=== PATIENT | female | born 1995 | race Caucasian/White ===

== ENCOUNTER 2018-09-15 04:03 | Inpatient (IN) ==
[2018-09-15] MEDS ORDERED: LORazepam 2 MG/4 ML VIAL ONE (04:32)
[2018-09-15 06:04] LABS: Alanine Aminotransferase 29 U/L (12-78); Albumin Level 4.4 gm/dl (3.4-5.0); Alkaline Phosphatase 64 U/L (45-117); Aspartate Aminotransferase 29 U/L (15-37); BUN Creatinine Ratio 11.4 (10-20); Bilirubin,Total 0.5 mg/dl (0.2-1); Blood Urea Nitrogen 10 mg/dl (7-18); Calcium 8.9 mg/dl (8.5-10.1); Carbon Dioxide 22 mmol/L (21-32); Chloride 106 mmol/L (98-107); Est GFR (African American) 116.8; Est GFR (Non-African American) 100.8; Globulin 4.5 gm/dl (2.5-4.0); Glucose 80 mg/dl (70-99); Potassium 3.5 mmol/L (3.5-5.1); Sodium 138 mmol/L (136-145); Total Protein 8.9 gm/dl (6.4-8.2)
[2018-09-15 06:05] LABS: Acetaminophen 37 ug/ml (10-30); Salicylate < 1.7 mg/dl (2.8-20)
[2018-09-15 06:06] LABS: Amphetamines+Metham, Urine Neg (Neg); Barbiturates, Urine Neg (Neg); Benzodiazepine, Urine Neg (Neg); Cocaine, Urine Neg (Neg); MDMA (Ecstacy), Urine Neg (Neg); Methadone, Urine Neg (Neg); Opiate, Urine Neg (Neg); Phencyclidine, Urine Neg (Neg)
[2018-09-15 06:16] LABS: Appearance Urine Clear (Clear); Bilirubin Urine Negative (Negative); Blood Urine Negative (Negative); Color Urine Yellow; Glucose Urine UA Negative (Negative); Ketones Urine Negative (Negative); Leukocyte Esterase Urine Negative (Negative); Nitrite Urine Negative (Negative); Protein Urine Negative (Negative); Specific Gravity Urine 1.009 (1.000-1.030); Urobilinogen Urine Negative (Negative); pH Urine 6.5 (4.5-7.5)
[2018-09-15 06:24] LABS: Hematocrit (blood only) 35.9 % (37-47); Hemoglobin 12.4 g/dL (12.0-16.0); Mean Corpuscular Hgb Conc 34.5 g/dL (32-36); Mean Corpuscular Volume 87.1 fL (80-100); RDW Standard Deviation 41.5 fL (36.4-46.3); Red Blood Count 4.12 M/uL (4.2-5.4); White Blood Count 7.48 K/uL (4.8-10.8)
[2018-09-15 06:25] LABS: Lymphocytes % (auto) 32.9 %; Mean Platelet Volume 10.3 fL (7.4-10.4); Neutrophils % (auto) 59.8 %; Platelet Count 232 K/uL (130-400)
[2018-09-15 06:26] LABS: Basophils # (auto) 0.03 K/uL (0-0.2); Basophils % (auto) 0.4 %; Cast Urine Automated 0 /lpf (0-5); Eosinophils # (auto) 0.06 K/uL (0-0.5); Eosinophils % (auto) 0.8 %; Immature Granulocytes # (auto) 0.01 K/uL (0.00-0.02); Immature Granulocytes % (auto) 0.1 %; Lymphocytes # (auto) 2.46 K/uL (1.2-3.4); Monocytes # (auto) 0.45 K/uL (0.11-0.59); Neutrophils # (auto) 4.47 K/uL (1.4-6.5); RBC Urine Automated 0-4 /hpf (0-4)
[2018-09-15 06:27] LABS: Bacteria Urine Automated 2+ (Negative)
--- NOTE | 2018-09-15 06:32 | Emergency Department Note ---
ED Provider Note Name: Capri Kessler Age: 22 F Arrives Via: EMS Informant: Pt (intoxicated), Friend, EMS CC: Medication overdose HPI: 22 female arrives for evaluation of medication overdose. Pt notes she was was drinking alcohol with friends and on returning home this evening her roomates were upset with her. She admits she took a handful of pills around 12am (Midnight). She admits she did this due to being upset, that she doesn't want to and that she is scared. States that it was an over the counter pain medication and is unsure if it was motrin or tylenol. She denies symptoms other than a headache currently. No trauma nor injuries. No other attempts at harming self. No past history of depression, nor suicide attempt. Has never seen a psychiatrist nor been evaluated for psychiatric illness. She takes control (nexplanon). She is on Humira. No family history per her of suicide nor depression. Denies cp, sob, abdominal pain, nausea, vomiting, back pain, nor other symptoms. No interventions prior to arrival. Nothing makes better nor worse. ROS: See above HPI for pertinent positives & negatives. A total of 10 systems reviewed and were otherwise negative. Past Medical History: Denies PMH Past Surgical History: Right Hip Surgery last year (unknown reason) Family History: Denies suicide in family nor other medical issues Social History: Student, drinks alcohol regularly, no drug use, no smoking, works a job Home Medications: Humira, Nexplanon Allergies None Physical: Vitals: 104/51, P 105, R 18, O2 96% Exam: GENERAL: Patient is upset appearing, crying, intoxicated and in minimal distress. EYES: No scleral icterus, unremarkable pupils. ENT: Mucous membranes moist, no nasal congestion. NECK: No masses appreciated, no meningismus, trachea is midline. RESPIRATORY: No dyspnea. Clear to auscultation and equal bilaterally. No wheeze, no rhonchi. CARDIOVASCULAR: Tachy. No murmurs, rubs, gallops appreciated. GASTROINTESTINAL: Abdomen soft, non-tender, no peritonitis. Bowel sounds positive. No masses appreciated. BACK: No midline tenderness, no CVA tenderness EXTREMITIES: Normal motion all extremities, no cyanosis, no edema. NEUROLOGIC: Intoxicated, no acute motor or sensory deficits, no focal weakness, cranial nerves grossly intact. SKIN: No rash, no jaundice, no diaphoresis. PSYCH: Admits being upset/anxious, admits sadness, denies she wants to nor hurt others. Denies hallucinations. ED Course: Prior Medical Record, Triage/Nursing Notes, Medications, Allergies reviewed by Me Vital Signs: reviewed and remarkable for Tachycardia Labs: Reviewed and remarkable for Tylenol level elevation initially below curve, but then significantly elevated at 4 hrs from arrival, otherwise clear work-up Interventions: Saline Lock, NSS Bolus 1 L IV, Ativan 1mg IV Imaging: CT Head : Per statrad no acute findings EKG: Per My interpretation: Sinus Tach 112 bpm, no ectopy, no ischemia, QTC 466 Consults: Poison Control: Verify medication she overdosed on, repeat Tyl not unreasonable. Rediscussion with them and they agree with starting nac and admission. Reassessments/Times: Multiple, stable, feeling better. Blood pressure: Normal. No Referral necessary Disposition: Admission to Hospitalist service (Dr Moseley) Differentials: Differential: Mood Disorder, Overdose, Infectious, Electrolyte Abnormality, Cardiac, Hepatic, Endocrine, Toxicologic, Neurologic, amongst other pathologies entertained. amongst other pathologies. Medical Decision Makin yr old female arrives intoxicated admitting medication overdose (not clear suicidal intent) around 12am after fighting with roomates. No history of s imilar. She denies any thoughts of hurting herself now. She wishes to go home though with alcohol level, tylenol mildly elevated, and 302 by police she will need to stay until medically cleared and then have full psych eval. She has moderately elevated Tyl level which need to be trended given intoxication and possibility of taking pills after 12am (but not before due to being with friends at that time). She arrived at 4am thus will repeat Tylenol at 8am to verify it is not increasing nor concern for need of NAC. With normal LFTs and tylenol below curve on initial seems reasonable to hold off on empiric nac for the moment. She was given some IV fluids as well as Ativan which improved her anxiety. She was stable on repeat evaluations. Repeat Tylenol level at 4 hours from arrival notes significant increase and is above line for 8hrs. I reviewed this with poison control and they agree at this time that she will need to be started on NAC. Discussed this with patient who is aware of plan for admission. Hospitalist consulted for admission. On several occasions I offered to contact parents and she declines. Impression: Acetaminophen Overdose Alcohol Intoxication Depression Anxiety Critical Care: I have personally spent greater than 30 minutes of critical care time in the direct management of this patient. Tylenol overdose requiring N-Acetylcysteine. This was a life/limb threatening event. This includes time spent evaluating patient, direct bedside care, chart review, placing orders, interpretation of diagnostic studies, discussion with consultants, patient, and friend, as well as other required patient management activities. This 30 minutes is in excess of all separately billable procedures. Jeffy Magana MD This patient was seen during [facility] down-time and chart completed at later date/time. Please note that times of orders, medications, and testing as well as re-evaluations and consultations may not accurately reflect actual times they were placed/preformed. Impression & Plan Acetaminophen overdose, Alcohol intoxication, Depression, Anxiety Results & Data Vital Signs Vital Signs - 24 hr 09/15/18 06:51 09/15/18 07:15 09/15/18 08:00 Pulse Rate [Apical] 113 H 87 95 H Pulse Rhythm [Apical] Regular Regular Respiratory Rate 25 H 25 H 24 Respiratory Effort / Characteristics Non-Labored Spontaneous Non-Labored Spontaneous Non-Labored Spontaneous Respiratory Depth Normal Normal Normal Respiratory Pattern Regular Regular Regular Blood Pressure [Right Arm] 99/48 L 102/46 L 106/57 L Blood Pressure Mean [Right Arm] 65 64 73 Blood Pressure Position [Right Arm] Sitting Lying Lying Pulse Oximetry 99 97 99 Oxygen Delivery Method Room Air Room Air Room Air 09/15/18 08:30 09/15/18 09:00 Pulse Rate [Apical] 105 H 111 H Pulse Rhythm [Apical] Regular Regular Respiratory Rate 18 21 Respiratory Effort / Characteristics Non-Labored Spontaneous Non-Labored Respiratory Depth Normal Normal Respiratory Pattern Regular Regular Blood Pressure [Right Arm] 104/51 L 115/68 Blood Pressure Mean [Right Arm] 68 83 Blood Pressure Position [Right Arm] Lying Lying Pulse Oximetry 97 98 Oxygen Delivery Method Room Air Room Air Laboratory Data Result diagrams: 09/15/18 04:15 09/15/18 04:15 Lab Results 09/15/18 09/15/18 09/15/18 Range/Units 04:15 04:15 04:15 WBC (4.8-10.8) K/uL RBC (4.2-5.4) M/uL Hgb (12.0-16.0) g/dL Hct (37-47) % MCV (80-100) fL MCH (25-34) pg MCHC (32-36) g/dL RDW Std Deviation (36.4-46.3) fL RDW Coeff of Mohan (11.5-14.5) % Plt Count (130-400) K/uL MPV (7.4-10.4) fL Immature Gran % (Auto) % Neut % (Auto) % Lymph % (Auto) % Vil[place] % (Auto) % Eos % (Auto) % Baso % (Auto) % Immature Gran # (Auto) (0.00-0.02) K/uL Neut # (Auto) (1.4-6.5) K/uL Lymph # (Auto) (1.2-3.4) K/uL Vil[place] # (Auto) (0.11-0.59) K/uL Eos # (Auto) (0-0.5) K/uL Baso # (Auto) (0-0.2) K/uL Absolute Nucleated RBC (0-0) K/uL Nucleated RBC % (auto) % PT (9.0-12.0) Seconds INR (0.9-1.1) APTT (21.0-31.0) Seconds PTT Ratio Sodium (136-145) mmol/L Potassium (3.5-5.1) mmol/L Chloride (98-107) mmol/L Carbon Dioxide (21-32) mmol/L Anion Gap (3-11) BUN (7-18) mg/dl Creatinine (0.6-1.2) mg/dl Est Cr Clr Drug Dosing Est GFR ( Amer) Est GFR (Non-Af Amer) BUN/Creatinine Ratio (10-20) Glucose (70-99) mg/dl Calcium (8.5-10.1) mg/dl Total Bilirubin (0.2-1) mg/dl AST (15-37) U/L ALT (12-78) U/L Alkaline Phosphatase (45-117) U/L Total Protein (6.4-8.2) gm/dl Albumin (3.4-5.0) gm/dl Globulin (2.5-4.0) gm/dl Albumin/Globulin Ratio (0.9-2) TSH (0.300-4.500) uIu/ml Urine Color Yellow Urine Appearance Clear (Clear) Urine pH 6.5 (4.5-7.5) Ur Specific [place] 1.009 (1.000-1.030) Urine Protein Negative (Negative) Urine Glucose (UA) Negative (Negative) Urine Ketones Negative (Negative) Urine Blood Negative (Negative) Urine Nitrite Negative (Negative) Urine Bilirubin Negative (Negative) Urine Urobilinogen Negative (Negative) Ur Leukocyte Esterase Negative (Negative) Urine WBC (Auto) 5-10 H (0-5) /hpf Urine RBC (Auto) 0-4 (0-4) /hpf U Hyaline Cast (Auto) 0 (0-5) /lpf U Epithel Cells (Auto) 5-10 H (0-5) /lpf Urine Bacteria (Auto) 2+ H (Negative) Urine Test Negative (Negative) Salicylates (2.8-20) mg/dl Urine Opiates Screen Neg (Neg) Ur Methadone, Qual Neg (Neg) Acetaminophen (10-30) ug/ml Urine Barbiturates Neg (Neg) Ur Phencyclidine (PCP) Neg (Neg) U Amphetamin/Meth Scrn Neg (Neg) MDMA (Ecstasy) Screen Neg (Neg) U Benzodiazepines Scrn Neg (Neg) Ur Cocaine Metabolite Neg (Neg) U Marijuana (THC) Screen Neg (Neg) Ethyl Alcohol mg/dL (0-3) mg/dl 09/15/18 09/15/18 09/15/18 Range/Units 04:15 04:15 04:15 WBC 7.48 (4.8-10.8) K/uL RBC 4.12 L (4.2-5.4) M/uL Hgb 12.4 (12.0-16.0) g/dL Hct 35.9 L (37-47) % MCV 87.1 (80-100) fL MCH 30.1 (25-34) pg MCHC 34.5 (32-36) g/dL RDW Std Deviation 41.5 (36.4-46.3) fL RDW Coeff of Mohan 13.0 (11.5-14.5) % Plt Count 232 (130-400) K/uL MPV 10.3 (7.4-10.4) fL Immature Gran % (Auto) 0.1 % Neut % (Auto) 59.8 % Lymph % (Auto) 32.9 % Vilas % (Auto) 6.0 % Eos % (Auto) 0.8 % Baso % (Auto) 0.4 % Immature Gran # (Auto) 0.01 (0.00-0.02) K/uL Neut # (Auto) 4.47 (1.4-6.5) K/uL Lymph # (Auto) 2.46 (1.2-3.4) K/uL Vilas # (Auto) 0.45 (0.11-0.59) K/uL Eos # (Auto) 0.06 (0-0.5) K/uL Baso # (Auto) 0.03 (0-0.2) K/uL Absolute Nucleated RBC 0.00 (0-0) K/uL Nucleated RBC % (auto) 0.0 % PT (9.0-12.0) Seconds INR (0.9-1.1) APTT (21.0-31.0) Seconds PTT Ratio Sodium 138 (136-145) mmol/L Potassium 3.5 (3.5-5.1) mmol/L Chloride 106 (98-107) mmol/L Carbon Dioxide 22 (21-32) mmol/L Anion Gap 10.0 (3-11) BUN 10 (7-18) mg/dl Creatinine 0.83 (0.6-1.2) mg/dl Est Cr Clr Drug Dosing Not Reportable Est GFR ( Amer) 116.8 Est GFR (Non-Af Amer) 100.8 BUN/Creatinine Ratio 11.4 (10-20) Glucose 80 (70-99) mg/dl Calcium 8.9 (8.5-10.1) mg/dl Total Bilirubin 0.5 (0.2-1) mg/dl AST 29 (15-37) U/L ALT 29 (12-78) U/L Alkaline Phosphatase 64 (45-117) U/L Total Protein 8.9 H (6.4-8.2) gm/dl Albumin 4.4 (3.4-5.0) gm/dl Globulin 4.5 H (2.5-4.0) gm/dl Albumin/Globulin Ratio 1.0 (0.9-2) TSH 3.000 (0.300-4.500) uIu/ml Urine Color Urine Appearance (Clear) Urine pH (4.5-7.5) Ur Specific [place] (1.000-1.030) Urine Protein (Negative) Urine Glucose (UA) (Negative) Urine Ketones (Negative) Urine Blood (Negative) Urine Nitrite (Negative) Urine Bilirubin (Negative) Urine Urobilinogen (Negative) Ur Leukocyte Esterase (Negative) Urine WBC (Auto) (0-5) /hpf Urine RBC (Auto) (0-4) /hpf U Hyaline Cast (Auto) (0-5) /lpf U Epithel Cells (Auto) (0-5) /lpf Urine Bacteria (Auto) (Negative) Urine Test (Negative) Salicylates < 1.7 L (2.8-20) mg/dl Urine Opiates Screen (Neg) Ur Methadone, Qual (Neg) Acetaminophen 37 H (10-30) ug/ml Urine Barbiturates (Neg) Ur Phencyclidine (PCP) (Neg) U Amphetamin/Meth Scrn (Neg) MDMA (Ecstasy) Screen (Neg) U Benzodiazepines Scrn (Neg) Ur Cocaine Metabolite (Neg) U Marijuana (THC) Screen (Neg) Ethyl Alcohol mg/dL (0-3) mg/dl 09/15/18 09/15/18 09/15/18 Range/Units 04:15 07:59 07:59 WBC (4.8-10.8) K/uL RBC (4.2-5.4) M/uL Hgb (12.0-16.0) g/dL Hct (37-47) % MCV (80-100) fL MCH (25-34) pg MCHC (32-36) g/dL RDW Std Deviation (36.4-46.3) fL RDW Coeff of Omhan (11.5-14.5) % Plt Count (130-400) K/uL MPV (7.4-10.4) fL Immature Gran % (Auto) % Neut % (Auto) % Lymph % (Auto) % Vil[place] % (Auto) % Eos % (Auto) % Baso % (Auto) % Immature Gran # (Auto) (0.00-0.02) K/uL Neut # (Auto) (1.4-6.5) K/uL Lymph # (Auto) (1.2-3.4) K/uL [place] # (Auto) (0.11-0.59) K/uL Eos # (Auto) (0-0.5) K/uL Baso # (Auto) (0-0.2) K/uL Absolute Nucleated RBC (0-0) K/uL Nucleated RBC % (auto) % PT 11.7 (9.0-12.0) Seconds INR 1.2 H (0.9-1.1) APTT 24.8 (21.0-31.0) Seconds PTT Ratio 0.9 Sodium (136-145) mmol/L Potassium (3.5-5.1) mmol/L Chloride (98-107) mmol/L Carbon Dioxide (21-32) mmol/L Anion Gap (3-11) BUN (7-18) mg/dl Creatinine (0.6-1.2) mg/dl Est Cr Clr Drug Dosing Est GFR ( Amer) Est GFR (Non-Af Amer) BUN/Creatinine Ratio (10-20) Glucose (70-99) mg/dl Calcium (8.5-10.1) mg/dl Total Bilirubin (0.2-1) mg/dl AST (15-37) U/L ALT (12-78) U/L Alkaline Phosphatase (45-117) U/L Total Protein (6.4-8.2) gm/dl Albumin (3.4-5.0) gm/dl Globulin (2.5-4.0) gm/dl Albumin/Globulin Ratio (0.9-2) TSH (0.300-4.500) uIu/ml Urine Color Urine Appearance (Clear) Urine pH (4.5-7.5) Ur Specific [place] (1.000-1.030) Urine Protein (Negative) Urine Glucose (UA) (Negative) Urine Ketones (Negative) Urine Blood (Negative) Urine Nitrite (Negative) Urine Bilirubin (Negative) Urine Urobilinogen (Negative) Ur Leukocyte Esterase (Negative) Urine WBC (Auto) (0-5) /hpf Urine RBC (Auto) (0-4) /hpf U Hyaline Cast (Auto) (0-5) /lpf U Epithel Cells (Auto) (0-5) /lpf Urine Bacteria (Auto) (Negative) Urine Test (Negative) Salicylates (2.8-20) mg/dl Urine Opiates Screen (Neg) Ur Methadone, Qual (Neg) Acetaminophen 84 H (10-30) ug/ml Urine Barbiturates (Neg) Ur Phencyclidine (PCP) (Neg) U Amphetamin/Meth Scrn (Neg) MDMA (Ecstasy) Screen (Neg) U Benzodiazepines Scrn (Neg) Ur Cocaine Metabolite (Neg) U Marijuana (THC) Screen (Neg) Ethyl Alcohol mg/dL 227.0 H (0-3) mg/dl Discharge Plan Visit Data Chief Complaint: Overdose (Intentional) ED Provider: Jeffy Magana Discharge Problem: Acetaminophen overdose, Alcohol intoxication, Depression, Anxiety Forms Stand Alone Forms: My [facility] [employer] Prescriptions Prescriptions: No Action Humira Pen 40 mg/0.8 mL Pen Injector Kit 40 mg subcut TW RF: 0 Nexplanon 68 mg Implant 68 mg SUBDERMAL CONTINOUS RF: 0 Referrals Referrals: [facility] [Primary Care Provider] - Discharge Problem: Acetaminophen overdose Qualifiers: Encounter type: initial encounter Injury intent: undetermined intent Qualified Code(s): T39.1X4A - Poisoning by 4-Aminophenol derivatives, undetermined, initial encounter Alcohol intoxication Qualifiers: Complication of substance-induced condition: uncomplicated Qualified Code(s): F10.920 - Alcohol use, unspecified with intoxication, uncomplicated Depression Qualifiers: Depression Type: major depressive disorder Major depression recurrence: single episode Active/Remission status: currently active Major depression episode severity: moderate Qualified Code(s): F32.1 - Major depressive disorder, single episode, moderate
--- NOTE | 2018-09-15 06:38 | CT Scan Report ---
CT head/brain wo con CT DOSE: HISTORY: Mental status change POST OVERDOSE TECHNIQUE: Multiaxial CT images of the head were performed without the use of intravenous contrast. A dose lowering technique was utilized adhering to the principles of ALARA. Comparison: 05/07/2016 Findings: The paranasal sinuses and mastoid air cells are clear. The calvarium and skull base are int act. The ventricles and sulci are within normal limits. There is no mass, hematoma, midline shift, or acute infarct. Impression: No acute intracranial abnormality. The above report was generated using voice recognition software. It may contain grammatical, syntax or spelling errors. Electronically signed by: Ender Conrad M.D. 09/15/2018 6:37 AM
[2018-09-15 06:49] LABS: Pregnancy Test, Urine Negative (Negative)
[2018-09-15 08:28] LABS: INR 1.2 (0.9-1.1); Partial Thromboplastin Ratio 0.9; Partial Thromboplastin Time 24.8 Seconds (21.0-31.0); Prothrombin Time 11.7 Seconds (9.0-12.0)
[2018-09-15] MEDS ORDERED: AcetylCYSTEINE IV 21 HR REGIMEN (>40KG) IV STA (08:53)
[2018-09-15] MEDS ORDERED: DEXTROSE 5% IV SCH (09:30)
[2018-09-15] MEDS ORDERED: ACETYLCYSTEINE IV SCH (09:30)
--- NOTE | 2018-09-15 11:08 | History & Physical Report ---
Date of Service September 15, 2018 Assessment & Plan (1) Acetaminophen overdose: - Admit to med surg with tele - Tylenol 88 upon 8 hr recheck - NAC on board, plan for 21 hr reversal. Loading dose started in the ER. - CT head negative for acute findings - EKG reviewed and negative for acute ischemia or ST wave changes. - Psych consulted d/t 302 petition by the police. - Will have 1:1 bedside sitter, suicide precautions. - Pt has no previous history of anxiety or depression, suicidal or homicidal ideations/attempts. It appears this behavior was out of an act of impulsiveness while intoxicated. It does not seem likely that she truely was suicidal, and was more so an attention seeking behavior. Alcohol cessation was encouraged and strong reinforcement to not consume large quantities of alcohol in a short amount of time was also recommended. -Will await psych formal recommendations. (2) Ankylosing spondylitis: - Stable - Continue humira IV, last taken on 09/07/18, next dose on 09/21/18. (3) Alcohol intoxication: - EtOh level of 227 upon admission, continue IVFs, encourage PO intake as tolerated - Cessation encouraged as above (4) DVT prophylaxis: Teds, no chemical prophylaxis indicated. Pt may get up and walk as tolerated. History of Present Illness Primary Care Provider: NO PCP This is a 22 yo F with PMHx of ankylosing spondilitis on Humira IV biweekly injections x past 2 years, s/p a hip surgery 2 years ago where the diagnosis was initially made. She reports being excessively drunk last night and got into an argument with her roommate where she out of an act of attention seeking, ingested a bottle of tylenol, she estimates approximately 30 tablets. She reports no history of depression, anxiety, homicidal or suicidal ideation. Pt feels very ashamed of this, and is tearful during my exam because she feels "so dumb" for even being here in the hospital. She reports otherwise is a 4.0 student at [employer], works at a job on campus, and has a good support system of family and friends who she communicates with daily. She reports this was out of character and normally would not have taken the "mean and nast comments" her roommate said to her to heart. Acetaminophen level is 88 at the 8 hr michaela on recheck in the ER. NAC has been initiated. A 302 is petitioned due to police officers picking her up overnight and bringing her to the ER. Allergies Allergy/AdvReac Type Severity Reaction Status Date / Time No Known Allergies Allergy Verified 09/15/18 07:59 Home Medications Home Medications Medication Instructions Recorded Confirmed Type adalimumab [Humira Pen] 40 mg SUBCUT TW 09/15/18 09/15/18 History etonogestrel [Nexplanon] 68 mg SUBDERMAL CONTINOUS 09/15/18 09/15/18 History Past Med/Surg History Medical History Ankylosing spondylitis Acetaminophen overdose (Acute) Social History Preferred Language: Bulgarian Communication Ability: Effective Beliefs That Will Affect Care: None Current Living Situation: Other Current Living Situation Comment: Lives with friends Other Information That Helps Us Care for You: No Feels Safe at Home: Yes Safety Concerns: Feels Safe At This Time Smoking Status: Never smoker Hx Alcohol Use: Yes Hx Substance Use: No Review of Systems Constitutional: no fever, no chills, no sweats and no fatigue Eyes: no diplopia and no worsening vision Ear, Nose, Mouth, Throat: no dizziness, no nasal discharge, no facial pain and no sore throat Respiratory: no cough, no dyspnea and no wheezing Cardiovascular: no chest pain, no palpitations, no lightheadedness and no syncope Gastrointestinal: no nausea, no vomiting and no constipation no diarrhea Genitourinary (Female): no dysuria, no urinary frequency and no urinary incontinence Musculoskeletal: no back pain, no joint pain, no swelling and no muscle weakness Integumentary: no rash, no lesions and no wounds Neurologic: no gait abnormality, no falls, no numbness, no dizziness and no syncope Psychiatric: no depression, no hopelessness, no anhedonia, no suicidal ideation, no homicidal ideation, no anxiety and no panic attacks Endocrine: no fatigue Physical Exam Vital Signs (Past 24 Hours): Last Vital Signs Pulse 96 H 09/15/18 10:00 Resp 18 09/15/18 10:00 BP 118/66 09/15/18 10:00 Pulse Ox 98 09/15/18 10:00 Physical Exam: General: awake, alert, no apparent distress. + tearful, +thin Head: Normocephalic, atraumatic ENT: PERRL, EOMI, no pharyngeal exudate, mucous membranes moist Chest: Clear to auscultation, on room air, no adventitious breath sounds Cardiac: +sinus tach, no murmur, no JVD, normal peripheral pulses, good capillary refill Abdominal: NABS x 4 quadrants, soft, nontender to palpation, no rebound, guarding or tenderness Extremities: Normal inspection, no peripheral edema or erythema, calfs nontender to palpation Psych: Tearful and ashamed affect, denies suicidal or homicidal ideations. Neuro: AAO x 3, strength intact bilaterally and related 5/5, no motor deficits, speech is clear, no peripheral sensory deficits Results & Data Diagnostic Findings [facility] REN Curtis [phone] CT Scan Report Patient: Hannah SEBASTIAN Date: 09/15/18 MR#: [id number] [facility] [address] Acct ID:[id number]: Date: 1995[facility] Zip: [place] [address] Age: 22Location: ED Sex: F Room/Bed: Att Phy: Diagnosis: SUICIDAL [facility]: [facility] F[facility] Phy: Interpreting Phy: Michaela Conrad MD Admit Phy: Ordering Phy: Jeffy Magana M.D. cc: ~ CT head/brain wo con CT DOSE: HISTORY: Mental status change POST OVERDOSE TECHNIQUE: Multiaxial CT images of the head were performed without the use of intravenous contrast. A dose lowering technique was utilized adhering to the principles of ALARA. Comparison: 05/07/2016 Findings: The paranasal sinuses and mastoid air cells are clear. The calvarium and skull base are intact. The ventricles and sulci are within normal limits. There is no mass, hematoma, midline shift, or acute infarct. Impression: No acute intracranial abnormality. ECG Additional Comments: 15-SEP-2018 04:16:22 [facility] Sinus tachycardia Otherwise normal ECG No previous ECGs available Vent. rate 112 BPM ME interval 146 ms QRS duration 80 ms QT/QTc 342/466 ms P-R-T axes 57 60 35 Supervising Physician Co-Signing Physician Notes Patient seen and examined, chart reviewed, case discussed with REN Garcia and I agree with her assessment and plan as documented above. Patient is a 22yo female with history of ankylosing spondylitis presenting to [facility] with EtOH intoxication and Tylenol overdose. Patient states that she acted rashly during a fight with her roommate last night and took a handful of tylenol after heavy drinking, thought to be around 12:00. She states she had no intention of ending her life. She has no history of depression/anxiety/SI/HI/AH/VH/manic behavior. 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 Tylenol level at 02:27=37, repeat level at 07:59 was found to be 84. She was above the lign on the tylenol nomogram therefore NAC was started in the ER. Patient initially brought in as a 302. She is to be evaluated by Psychiatry later today. Patient verbally contracted for safety while in the hospital. On exam she is afebrile, tachycardic, tearful and anxious Skin: no rash, no icterus/jaundice HEENT: NC/AT, PERRL, MMM, neck supple Heart: +S1/S2, regular, tachycardic, no m/r/g Lungs: CTA, no rales/rhonchi/wheezes Abd: +BS, soft, NT/ND Ext: warm, 2+ pulses, no edema Labs and images reviewed. INR=1.2, Tylenol = 37 --> 84, ReKS=[id number] Assessment/Plan: -Admit to medical floor -NAC infusion per protocol. Monitor LFTs, INR -Psychiatry evaluation re: 302 -1:1 sitter, safety tray -Remainder of plan as above (1) Alcohol intoxication Complication of substance-induced condition: uncomplicated Qualified Code(s): F10.920 - Alcohol use, unspecified with intoxication, uncomplicated (2) Acetaminophen overdose Encounter type: initial encounter Injury intent: undetermined intent Qualified Code(s): T39.1X4A - Poisoning by 4-Aminophenol derivatives, undetermined, initial encounter
[2018-09-15] MEDS ORDERED: NON-FORMULARY MEDICATION (Etonogestrel [Nexplanon] 68 MG) SUBD SCH (12:53)
[2018-09-15] MEDS ORDERED: SODIUM CHLORIDE 0.9% 1000ML IV ONE (13:45)
[2018-09-15] MEDS: PANTOprazole 40 MG in SYRINGE 0 ML IV SCH (15:19)
[2018-09-16] MEDS ORDERED: IBUPROFEN 200 MG TAB PO ONE (00:08)
[2018-09-16 07:09] LABS: Hemoglobin 11.1 g/dL (12.0-16.0); Mean Corpuscular Hgb Conc 33.6 g/dL (32-36); Mean Corpuscular Volume 89.4 fL (80-100); Platelet Count 192 K/uL (130-400); RDW Coefficient of Variation 13.1 % (11.5-14.5); RDW Standard Deviation 42.4 fL (36.4-46.3); Red Blood Count 3.69 M/uL (4.2-5.4); White Blood Count 6.63 K/uL (4.8-10.8)
[2018-09-16 07:11] LABS: INR 1.2 (0.9-1.1); Prothrombin Time 12.1 Seconds (9.0-12.0)
[2018-09-16 07:34] LABS: Albumin Level 3.4 gm/dl (3.4-5.0); BUN Creatinine Ratio 7.3 (10-20); Bilirubin Direct 0.3 mg/dl (0-0.2); Calcium 8.6 mg/dl (8.5-10.1); Creatinine Clr Calc Pharmacy 100.8 ml/min; Est GFR (African American) 136.5; Est GFR (Non-African American) 117.7; Potassium 3.8 mmol/L (3.5-5.1)
[2018-09-16 07:36] LABS: Albumin Globulin Ratio 0.9 (0.9-2); Bilirubin,Total 1.3 mg/dl (0.2-1); Globulin 3.7 gm/dl (2.5-4.0); Total Protein 7.1 gm/dl (6.4-8.2)
[2018-09-16] MEDS: PANTOprazole 40 MG in SYRINGE 0 ML IV SCH (11:00)
--- NOTE | 2018-09-16 11:57 | Psychiatric Consultation ---
Date of Consultation September 16, 2018 Impression / Recommendations Impression 22-year-old woman admitted to the medical floor following a toxic ingestion of Tylenol. She indicates that she did so impulsively, under the influence of alcohol after a troubling argument with her roommate. Both she and her parents confirm that she has not a depressed individual, that she has been doing well in her life and school and everyone admits that she needs to take a look at her drinking patterns and cease binging. Her parents feel safe with her discharge and after reviewing with Dr. newton, we both agree that she is stable to be discharged from the hospital psychiatrically. I have counseled her about the impact of alcohol to mood and disinhibition. She agrees to reduce her alcohol intake and if the [facility] wants her to undergo substance use counseling she is willing for that. (1) Acetaminophen overdose: 09/16 - Done under the influence of alcohol, and no evidence of depression or psychiatric problems prior to the event. she agrees to evaluate her use of alcohol, and parents are comfortable with her being discharged. - Ok psychiatrically for discharge. Dr. Vanna Yousif has personally been involved in the review of this case and development of these recommendations. Encounter type: initial encounter Injury intent: undetermined intent Qualified Code(s): T39.1X4A - Poisoning by 4-Aminophenol derivatives, undetermined, initial encounter Present on Admission?: Yes Inventory Assets Strengths: Good support from parents, soon to graduate college Needs: To abstain from binge drinking Risk Factors Assessment Male: No : Yes Do You Have Access To A Gun?: No Health Problems: No Mental Health Diagnoses: No Substance Use Disorders: Yes (Binge drinking) Previous Attempt: No Previous Attempt; Didn't Tell Anyone: No Family History of Suicide: No Previous Psychiatric Hospitalization: No Hopelessness: No Protective Factors Assessment : No Responsible for Young Children: No Employed: No Supportive Family: Yes CPT Code 68402 Psych History Identifying Data 22-year-old [employer] student admitted medically following a toxic ingestion of Tylenol in an impulsive suicide attempt. We are consulted to evaluate. Information is gathered from the patient and her parents were at the bedside. Chief Complaint "Drinking too much.". History of Present Illness The patient is a 22-year-old [employer] student, not in any kind of psychiatric treatment, who reports that she drank to excess and got into an argument with her roommate the night of admission. She denies that she has been depressed but says that she drank steadily over the course of the evening having gone to a concert and then return to drink more at her apartment. She and 1 of her roommates got into a heated argument with the roommate saying hurtful things about not valuing her friendship. She said she had impulsive thoughts to overdose and very quickly did that by grabbing the Tylenol but immediately regretted it, told her roommate who called 911 and she willingly came to the emergency department. She denies that she has been depressed and describes herself generally as a "happy person". She denies problems with her sleep think she gets about 8 hours per night. She denies loss of interest in previously satisfying activities, energy concentration or appetite disturbances. 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 She denies any suicidal thinking today and says she would not have done that had she not been inebriated. She describes that she drinks on weekends, does not normally drink that much and is willing to undergo any counseling suggested to bring focus to alcohol abuse. Her parents are in the room and they stay with her permission. They indicate that she has never been a depressed girl and always been well adjusted. They were surprised to get a call about the overdose and came immediately. They have had open discussions about the events leading to hospitalization, and her alcohol use and will continue to have these discussions. They feel safe with her going home as they deny that she has ever been a depressed person or has she ever seen a psychiatric professional. Past Psychiatric History Previous Psych History: None Outpatient Services: None Previous Psych Admissions: None Do You Have Access To A Gun?: No History of Previous Suicide Attempt: No Past Medication Trials: None Allergies Allergy/AdvReac Type Severity Reaction Status Date / Time No Known Allergies Allergy Verified 09/15/18 07:59 Home Medications Home Medications Medication Instructions Recorded Confirmed Type adalimumab [Humira Pen] 40 mg SUBCUT TW 09/15/18 09/15/18 History etonogestrel [Nexplanon] 68 mg SUBDERMAL CONTINOUS 09/15/18 09/15/18 History Personal History Living Arrangements: APartment Highest Grade Completed: College (Senior) Beliefs That Will Affect Care: None Patient History Medical History Ankylosing spondylitis Acetaminophen overdose (Acute) Social History Preferred Language: Frisian Communication Ability: Effective Beliefs That Will Affect Care: None Current Living Situation: Other Current Living Situation Comment: Lives with friends Other Information That Helps Us Care for You: No Feels Safe at Home: Yes Safety Concerns: Feels Safe At This Time Smoking Status: Never smoker Hx Alcohol Use: Yes Hx Substance Use: No Physical Exam Psychiatric Orientation: alert and cooperative Apperance: appropriately dressed and appropriately groomed Eye Contact: good eye contact Motor Behavior: steady gait and station and no abnormal motor movements Speech: normal rate/rhythm/volume of speech Affect: + anxious affect Mood: + anxious mood Thought Process: goal directed thought process Thought Content: reality based without delusions Suicidal Thoughts: denies suicidal thoughts Homicidal Thoughts: denies homicidal thoughts Hallucinations: no auditory hallucinations and no visual hallucinations Cognition: recent memory grossly intact, remote memory grossly intact, attention grossly intact and language grossly intact Estimated Intelligence: average estimated intelligence Insight: + fair insight Judgement: + fair judgement Vital Signs (Past 24 Hours) Last Vital Signs Temp 36.8 C 09/16/18 07:00 Pulse 66 09/16/18 07:02 Resp 16 09/16/18 07:00 BP 123/85 09/16/18 07:00 Pulse Ox 100 09/16/18 07:00 Review of Systems All systems reviewed & are unremarkable except as noted in HPI & below Results & Data Medications Administered Pantoprazole Sodium 40 mg/ (Syringe) 10 mls @ 5 mls/min IV DAILY@1100 [facility] Stop: 10/15/18 13:29 Last Admin: 09/16/18 11:00 Dose: 5 mls/min Documented by: [id number] Admin: 09/15/18 15:19 Dose: 5 mls/min Documented by: [id number] Miscellaneous (Order Awaiting Action) 1 ea N/A QS [facility] Stop: 10/15/18 15:59 Last Admin: 09/16/18 08:12 Dose: Not Given Documented by: [id number] Admin: 09/16/18 00:36 Dose: Not Given Documented by: [id number] Admin: 09/15/18 15:12 Dose: Not Given Documented by: [id number]
--- NOTE | 2018-09-16 13:58 | Discharge Summary ---
Date of Service September 16, 2018 Admission HPI Per Admitting Provider The patient is a 22-year-old [employer] student, not in any kind of psychiatric treatment, who reports that she drank to excess and got into an argument with her roommate the night of admission. She denies that she has been depressed but says that she drank steadily over the course of the evening having gone to a concert and then return to drink more at her apartment. She and 1 of her roommates got into a heated argument with the roommate saying hurtful things about not valuing her friendship. She said she had impulsive thoughts to overdose and very quickly did that by grabbing the Tylenol but immediately regretted it, told her roommate who called 911 and she willingly came to the emergency department. She denies that she has been depressed and describes herself generally as a "happy person". She denies problems with her sleep think she gets about 8 hours per night. She denies loss of interest in previously satisfying activities, energy concentration or appetite disturbances. 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 She denies any suicidal thinking today and says she would not have done that had she not been inebriated. She describes that she drinks on weekends, does not normally drink that much and is willing to undergo any counseling suggested to bring focus to alcohol abuse. Her parents are in the room and they stay with her permission. They indicate that she has never been a depressed girl and always been well adjusted. They were surprised to get a call about the overdose and came immediately. They have had open discussions about the events leading to hospitalization, and her alcohol use and will continue to have these discussions. They feel safe with her going home as they deny that she has ever been a depressed person or has she ever seen a psychiatric professional. Admission Exam Per Admitting Provider Physical Exam: General: awake, alert, no apparent distress. + tearful, +thin Head: Normocephalic, atraumatic ENT: PERRL, EOMI, no pharyngeal exudate, mucous membranes moist Chest: Clear to auscultation, on room air, no adventitious breath sounds Cardiac: +sinus tach, no murmur, no JVD, normal peripheral pulses, good capillary refill Abdominal: NABS x 4 quadrants, soft, nontender to palpation, no rebound, guarding or tenderness Extremities: Normal inspection, no peripheral edema or erythema, calfs nontender to palpation Psych: Tearful and ashamed affect, denies suicidal or homicidal ideations. Neuro: AAO x 3, strength intact bilaterally and related 5/5, no motor deficits, speech is clear, no peripheral sensory deficits Principal Diagnosis Acetaminophen Overdose Discharge Exam Constitutional WD/WN, vitals as above + thin, well groomed, cooperative and comfortable; no acute distress, not ill appearing, not intoxicated appearing, no altered mental status and not in distress Eyes + anicteric sclerae, PERRL and EOM intact bilaterally ENMT external ear and nose normal, oropharynx normal Neck normal visual inspection and trachea midline Respiratory normal respiratory effort, lungs clear to auscultation Cardiovascular RRR, no murmur, no edema Gastrointestinal (Abdomen) normal bowel sounds, soft, nontender, no hepatosplenomegaly Musculoskeletal Head/Neck/Chest: normocephalic and head atraumatic Extremities: extremities normal to inspection Skin no rashes, warm and dry Neurologic CN's II-XI intact bilaterally Psychiatric A+Ox3, euthymic affect Suicidal Thoughts: denies suicidal thoughts, denies suicidal plan and denies suicidal intent Homicidal Thoughts: denies homicidal thoughts, denies homicidal plan and denies homicidal intent Hallucinations: no auditory hallucinations and no visual hallucinations Insight: good insight Discharge Data Allergies Allergy/AdvReac Type Severity Reaction Status Date / Time No Known Allergies Allergy Verified 09/15/18 07:59 Consultations 09/15/18 08:59 ED Decision to Admit Stat 09/15/18 10:24 Consult Psychiatry Routine Ordered Studies 09/15/18 04:15 CT head/brain wo con Urgent Impression: No acute intracranial abnormality. Hospital Course (1) Acetaminophen overdose: Patient intoxicated under the influence of alcohol had argument with roommate. Roommate said hurtful things to patient and on impulse she took numerous Tylenol pills. No evidence of depression or psychiatric problems prior to the event. Patient agrees to evaluate her use of alcohol, and parents are comfortable with her being discharged. Patient was seen by Psychiatry who are okay with her being discharged home. Received 21 hour [id number] 21 hour protocol while here for antidote for Acetaminophen overdose. On presentation to ED Acetaminophen level was 37 (09/15 04:15); 84 (09/15); <2 on day of discharge (09/16 09:10) César lesly was involved and on morning of discharge closed case and did not recommend any further NAC. Her EtOH level was 227 on presentation. No signs of intoxication on day of discharge. Mom and Father are with patient here. Drug screen was negative. Salicylate level was negative. She denies Suicidal/Homicidal ideations. Agree safe to go home. Total Time Total Time Spent Total Time Spent (In Minutes): 30 Discharge Plan Discharge Items Patient Disposition: Home - Self-Care Reason For Visit: TYLENOL OVERDOSE Discharge Diagnosis: Acetaminophen overdose Discharge Goals: Prevent disease Activity: Per 'Additional Instructions' section Non-emergency contact: Primary Care Provider Call non-emergency contact if: your symptoms worsen Follow-up/Referrals: PCP,NO [Primary Care Provider] - Diet: Regular Addtl Provider Instructions: Please evaluate alcohol use and limit alcohol intake that led to loss of impulse control. If you believe you have a drinking problem, please seek help. Please avoid any further Tylenol intake for next couple weeks. You can take Ibuprofen/Advil/Motrin if you need to use an [id number] drug in place of Tylenol. If you have suicidal thoughts, please seek help. You can call [facility] Can Help/Crisis line 09/02 at . You can also contact that number for help with alcohol abuse. If you feel like you are suffering from depression or anxiety, please discuss with your Primary Care Provider. Since you are a [employer] student, you can also seek help from [facility] ([facility]). You can contact them at for a free phone consultation to learn more about treatment options. They have therapy services, if you would like to talk to someone. Prescriptions: Continued Humira Pen 40 mg/0.8 mL Pen Injector Kit 40 mg subcut TW RF: 0 Nexplanon 68 mg Implant 68 mg SUBDERMAL CONTINOUS RF: 0 Stand-Alone Forms: [employer]/Other Patient Handouts: Suicide Warning Signs What Do, Suicide Warning Signs Self Discharge Orders: Discharge Order (Routine); Ordered 09/16/18 Ordered By: David Goel Admission Data Admit Date/Time: 09/15/18 10:51 Attending Provider: Angel Lau Admit Provider: Prabhu,Kelsey M Primary Care Provider: PCP,NO Other Providers: Yanci Moseley ; Vanna Yousif Service: Telemetry Medical Other Interventions: Discharge Summary Assessment (RN) Last Done: 09/16/18 16:14 DC Date/Time DO NOT enter until pt leaves facility: 09/16/18 17:05 Supervising Physician Co-Signing Physician Notes I saw the patient with the resident physician and confirmed del cid portions of the history and physical exam. I agree with the resident's documentation in the discharge summary. I also talked with the patient's mother regarding the history, diagnosis, and treatment. Appreciate psychiatry consultation.
== END 2018-09-16 17:05 | disposition home or self-care (01) | DRG 918 ==
LOC: ED 04:03 → 2N 10:51 → SUATTDRO 10:51 → 2N 12:24